=== PATIENT | female | born 1960 | race Caucasian/White ===

== ENCOUNTER 2019-08-24 20:31 | Observation (INO) | payer OTHER ==
[2019-08-24] MEDS ORDERED: Albuterol Sulfate 2.5 mg/3 ml Neb ONE ×2 (20:54→22:52)
--- NOTE | 2019-08-24 21:00 | RAD ---
EXAM: Portable chest PROVIDED CLINICAL HISTORY: Dyspnea COMPARISON: 01/20/2019 FINDINGS: Cardiac and mediastinal silhouette is within normal limits. No focal consolidation, pleural fluid or pneumothorax evident. IMPRESSION: No evidence for an acute cardiopulmonary process.
[2019-08-24 21:05] LABS: Analyzer IN Cardio ER; Base Excess (BEa) -0.4 mEq/L (-2.0 to +3.0); CO2 Tension 30.3 mmHg (35.0-45.0); Calcium, Ionized 1.12 mmol/L (1.12-1.30); Carboxyhemoglobin (COHb) 0.2 gm% (0.0-3.0); Hemoglobin (Hb) 14.6 g/dL (12.0-16.0); O2 Tension (PaO2) 67.3 mmHg (> 80.0); Potassium - ABG Lab 2.92 mmol/L (3.70-5.30); pH, Arterial 7.48 (7.35-7.45)
[2019-08-24] MEDS ORDERED: Magnesium 2 GM/50 ML BAG (IN WATER) ONE (21:05)
[2019-08-24] MEDS ORDERED: Dexamethasone 10 MG/ML VIAL ONE (21:05)
[2019-08-24 21:11] LABS: ALV-art Gradient 44.555 (0-20); Puncture Site RRA
[2019-08-24] MEDS ORDERED: Oseltamivir 75 MG CAP PO SCH (21:15)
[2019-08-24 21:44] LABS: #Lymphocytes 1.2 thou/uL (1.20-3.40); #Monocytes 0.4 thou/uL (0.11-0.59); #Neutrophils 2.8 thou/uL (1.40-6.50); %Basophils 0.1 % (0.0-1.0); %Eosinophils 0.6 % (0.0-10.0); %Lymphocytes 26.5 % (21.0-51.0); %Neutrophils 64.8 % (42.0-75.0); Mean Corpuscular HGB CONC 36.1 g/dL (32.0-36.0); Mean Corpuscular Hemoglobin 31.6 pg (27.0-31.0); Mean Corpuscular Volume 87.6 fL (78.0-98.0); Mean Platelet Volume 8.6 fL (7.4-10.4); Platelet Count 195 thou/uL (130-400); RBC Distribution Width 12.1 % (11.5-14.5); Red Blood Cell (RBC) Count 4.42 mill/uL (4.20-5.40); White Blood Cell (WBC) Count 4.4 thou/uL (4.8-10.8)
[2019-08-24 22:03] LABS: ALT (SGPT) 15 U/L (8-55); AST (SGOT) 27 U/L (5-34); Albumin 4.1 g/dL (3.4-4.8); Alkaline Phosphatase 74 U/L (40-110); Anion Gap 14 mmol/L (10-20); BUN (Urea Nitrogen) 13 mg/dL (9.8-20.1); Bilirubin, Total 0.5 mg/dL (0.2-1.2); CK (CPK) 320 U/L (29-168); Calc. Creatinine Clearance 0 mL/min (70-130); Calcium 8.9 mg/dL (7.8-10.44); Carbon Dioxide 23 mmol/L (23-31); Chloride 104 mmol/L (98-107); Estimated GFR-MDRD 70; Globulin 2.7 g/dL (2.4-3.5); Glucose 126 mg/dL (80-115); Lipase 54 U/L (8-78); Protein, Total 6.8 g/dL (6.0-8.3); Sodium 138 mmol/L (136-145)
[2019-08-24 22:23] LABS: Phosphorus 2.6 mg/dL (2.3-4.7)
[2019-08-24 22:25] LABS: CKMB 2.7 ng/mL (0-6.6)
[2019-08-24] MEDS ORDERED: Aspirin Chewable 81 MG TAB ONE ×2 (22:25→22:26)
[2019-08-25] MEDS ORDERED: Ondansetron PF 4 MG/2 ML Vial IVP PRN ×2 (01:03→02:42)
[2019-08-25] MEDS ORDERED: Ondansetron ODT 4 MG TAB SL PRN (01:03)
[2019-08-25] MEDS ORDERED: Sodium Chloride 0.9% 1,000 ML IV SCH (01:03)
[2019-08-25 02:32] VITALS: BMI 44.4
[2019-08-25] MEDS ORDERED: Ondansetron ODT 4 MG TAB PO PRN (02:42)
[2019-08-25] MEDS ORDERED: Senokot S 8.6-50 MG TAB PO PRN (02:42)
[2019-08-25] MEDS ORDERED: Acetaminophen 325 MG TAB PO PRN (02:42)
[2019-08-25] MEDS ORDERED: Calcium Carbonate 500 MG ChewTAB PO PRN (02:42)
[2019-08-25] MEDS ORDERED: cloNIDine 0.1 MG TAB PO PRN (02:44)
[2019-08-25] MEDS ORDERED: Potassium Chloride 20 MEQ TAB PO SCH ×2 (02:45→09:00)
[2019-08-25] MEDS ORDERED: Magnesium 2 GM/50 ML 2 GM in Premix Bag 1 BAG IVPB SCH (03:00)
--- NOTE | 2019-08-25 03:29 | HP ---
CHIEF COMPLAINT: Shortness of breath. HISTORY OF PRESENT ILLNESS: The patient is a 59-year-old white female with mild persistent asthma, presented to the emergency room with above complaints. Over the last 7 to 8 days, the patient developed gradual worsening shortness of breath along with chest tightness and wheezing. She also felt febrile, however, did not record her temperature. She was seen at [facility] and was diagnosed with flu on the 22 of August. She was discharged home after nebulizer treatment. Her symptoms progressively got worse, for which she presented to the emergency room. She has difficulty walking to the bathroom from her bedroom. She tried using nebulizer 4 to 5 times a day without much relief. She never takes the flu shot per patient report. In the emergency room, the patient was in significant distress with O2 saturation of 92% on room air. She received nebulizer treatment, aspirin, Levaquin, Tamiflu, Decadron, and DuoNebs in the emergency room. The patient was brought in by EMS. PAST MEDICAL HISTORY: 1. Mild persistent asthma. 2. History of herpes simplex infection in 2013. PAST SURGICAL HISTORY: 1. Hysterectomy in 1981. 2. Removal of skin tumor in the neck in 1994 to 1995. ALLERGIES: THE PATIENT DENIES ANY DRUG ALLERGIES. CURRENT HOME MEDICATIONS: The patient has albuterol nebulizer as needed. She uses ProAir inhaler as needed. She is on Advair Diskus 250/50 twice a day. SOCIAL HISTORY: She denies any history of smoking, alcohol, or drug use. She currently lives at home with her spouse. FAMILY HISTORY: Positive for father with hypertension. Mother with diabetes and stroke. REVIEW OF SYSTEMS: All other review of systems reviewed and were found negative. PHYSICAL EXAMINATION: VITAL SIGNS: Temperature 99, respirations of 24, pulse rate of 88, blood pressure of 122/58 with O2 saturation 95% on room air. GENERAL: A 59-year-old female in mild to moderate respiratory distress, currently receiving breathing treatment. HEENT: Head, atraumatic and normocephalic. Sclerae anicteric. Dry mucous membranes. No oral lesion. NECK: Supple. No JVD. No carotid bruit. LUNGS: Show diffuse expiratory wheezing with rhonchi. There were occasional rales at bases. Mild accessory muscle use. HEART: S1 and S2 present. Regular. No rubs or gallops. ABDOMEN: Soft, obese. Bowel sounds present. No rebound or guarding. EXTREMITIES: No edema or calf tenderness. NEUROLOGIC: Grossly nonfocal. Moves all 4 extremities. PSYCHIATRY: Alert, awake, and oriented x3. Normal affect. SKIN: Warm and dry. LYMPH NODES: No palpable lymph nodes in the neck. PERIPHERAL VASCULAR: Radial pulses palpable bilaterally. LABORATORY FINDINGS: WBC 4.4 with hemoglobin 14 and hematocrit 38.8. ABGs showed pH 7.48 with pCO2 of 30.3 and bicarbonate 22. Chemistry showed sodium 138, potassium 3, chloride 104, bicarb 23, BUN of 13, and creatinine 0.83. CK was 320, troponin of 0.047 with normal CK-MB. BNP was less than 10. CARDIOVASCULAR STUDIES: EKG by my review showed sinus rhythm without significant ST-T wave changes. IMAGING DATA: Chest x-ray by my review showed increased bronchopulmonary markings. IMPRESSION: 1. Acute hypoxic respiratory failure. 2. Acute asthma exacerbation. 3. Acute bronchitis, suspected due to influenza. 4. Hypokalemia. 5. Chronic kidney disease, stage 2. 6. Type 2 myocardial infarction. 7. Morbid obesity with a BMI of 44.4. 8. History of mild persistent asthma. 9. Generalized weakness, multifactorial. 10. Leukopenia secondary to #1 and 2. 11. Hypomagnesemia. PLAN: The patient will be monitored on the medical floor. We will start her on Solu-Medrol 20 mg every 6 hours along with nebulizer treatment every 4 hours. Continue Tamiflu, which was started in the ER. We will also continue empiric antibiotics for possible bacterial component. Replace electrolytes. We will give her 2 g IV magnesium. Plan of care was discussed with the patient in detail. She stated understanding. Job ID: [id number]
[2019-08-25] MEDS: Mometasone/Formoterol 120 PUFF INHALER INH SCH ×2 (07:00→19:19)
[2019-08-25] MEDS: methylPREDNISolone Sod Succ 40 MG VIAL IVP SCH ×3 (07:27→17:30)
[2019-08-25 07:36] LABS: Anion Gap 17 mmol/L (10-20); BUN (Urea Nitrogen) 11 mg/dL (9.8-20.1); Calc. Creatinine Clearance 151 mL/min (70-130); Carbon Dioxide 21 mmol/L (23-31); Chloride 106 mmol/L (98-107); Estimated GFR-MDRD 76; Glucose 158 mg/dL (80-115); Potassium 3.7 mmol/L (3.5-5.1); Sodium 140 mmol/L (136-145)
[2019-08-25 07:43] LABS: Troponin I 0.025 ng/mL (< 0.028)
[2019-08-25 08:01] LABS: #Lymphocytes 0.7 thou/uL (1.20-3.40); #Monocytes 0.1 thou/uL (0.11-0.59); #Neutrophils 1.8 thou/uL (1.40-6.50); %Basophils 0.6 % (0.0-1.0); %Eosinophils 0.7 % (0.0-10.0); %Lymphocytes 26.1 % (21.0-51.0); %Monocytes 3.9 % (0.0-10.0); %Neutrophils 68.6 % (42.0-75.0); Hemoglobin 13.9 g/dL (12.0-16.0); Mean Corpuscular HGB CONC 33.3 g/dL (32.0-36.0); Mean Corpuscular Hemoglobin 30.7 pg (27.0-31.0); Mean Corpuscular Volume 92.1 fL (78.0-98.0); Mean Platelet Volume 8.6 fL (7.4-10.4); Platelet Count 207 thou/uL (130-400); RBC Distribution Width 12.3 % (11.5-14.5); Red Blood Cell (RBC) Count 4.54 mill/uL (4.20-5.40); White Blood Cell (WBC) Count 2.6 thou/uL (4.8-10.8)
[2019-08-25] MEDS: Famotidine 20 MG TAB PO SCH ×2 (08:19→20:14)
[2019-08-25] MEDS: guaiFENesin ER 600 MG TAB PO SCH ×2 (08:20→20:14)
[2019-08-25] MEDS: Potassium Chloride 20 MEQ TAB PO SCH ×3 (08:20→17:30)
[2019-08-25] MEDS: Saccharomyces boulardii 250 MG CAP PO SCH (08:20)
[2019-08-25] MEDS: Cefdinir 300 MG CAP PO SCH ×2 (08:20→20:14)
[2019-08-25] MEDS ORDERED: Oseltamivir 75 MG CAP PO SCH (09:00)
[2019-08-25] MEDS ORDERED: Dexamethasone 4 mg/ml Vial SLOW IVP SCH (09:00)
--- NOTE | 2019-08-25 12:06 | PDOC.HOSPP ---
- Subjective Encounter Date: 08/25/19 Encounter Time: 09:45 Subjective: Patient seen and examined. No new complaints. No overnight events - Objective Vital Signs & Weight: Vital Signs (12 hours) Temp Pulse Resp BP Pulse Ox 08/25/19 12:01 70 16 08/25/19 11:46 98.4 F 70 20 153/87 H 94 L 08/25/19 08:00 99 08/25/19 07:59 98.4 F 71 20 130/77 99 08/25/19 07:00 71 16 08/25/19 06:52 71 16 08/25/19 04:10 98.6 F 73 20 112/69 100 08/25/19 03:00 100 08/25/19 02:46 98.3 F 76 137/81 100 08/25/19 02:08 83 18 100 Weight Weight 275 lb 6 oz Result Diagrams: 08/25/19 07:05 08/25/19 07:05 Radiology Reviewed by me: Yes Hospitalist ROS - Review of Systems Constitutional: denies: fever, chills, sweats, weakness, malaise, other ENT: denies: ear pain, ear discharge, nose pain, nose discharge, nose congestion , mouth pain, mouth swelling, throat pain, throat swelling, other Respiratory: reports: cough, shortness of breath. denies: dry, hemoptysis, SOB with excertion, pleuritic pain, sputum, wheezing, other Cardiovascular: denies: chest pain, palpitations, orthopnea, paroxysmal noc. dyspnea, edema, light headedness, other Gastrointestinal: denies: nausea, vomiting, abdominal pain, diarrhea, constipation, melena, hematochezia, other Genitourinary: denies: dysuria, frequency, incontinence, hematuria, retention, other Musculoskeletal: denies: neck pain, shoulder pain, arm pain, back pain, hand pain, leg pain, foot pain, other Skin: denies: rash, lesions, cheryl, bruising, other - Medication Medications: Active Medications Generic Name Dose Route Start Last Admin Trade Name Freq PRN Reason Stop Dose Admin Albuterol/Ipratropium 3 ml 08/25/19 07:00 08/25/19 12:01 Duoneb NEB 3 ml [id number] JOHNSON Administration Cefdinir 300 mg 08/25/19 09:00 08/25/19 08:20 Omnicef PO 300 mg BID JOHNSON Administration Famotidine 20 mg 08/25/19 09:00 08/25/19 08:19 Pepcid PO 20 mg BID JOHNSON Administration Guaifenesin 600 mg 08/25/19 09:00 08/25/19 08:20 Mucinex PO 600 mg Q12HR JOHNSON Administration Methylprednisolone Sodium Succinate 20 mg 08/25/19 06:00 08/25/19 11:29 Solu-Medrol IVP 20 mg Q6HR JOHNSON Administration Mometasone Furoate/Formoterol Fumar 2 puff 08/25/19 06:30 08/25/19 07:00 Dulera 200 Mcg/5 Mcg Inhaler INH 2 puff BID-RT JOHNSON Administration Oseltamivir Phosphate 75 mg 08/25/19 09:00 08/25/19 08:20 Tamiflu PO 08/29/19 09:01 75 mg BID JOHNSON Administration Potassium Chloride 20 meq 08/25/19 08:00 08/25/19 11:29 K-Dur PO 08/25/19 17:01 20 meq TID-WM JOHNSON Administration Saccharomyces Boulardii 250 mg 08/25/19 09:00 08/25/19 08:20 Florastor PO 250 mg DAILY JOHNSON Administration - Exam General Appearance: NAD, awake alert Eye: PERRL, anicteric sclera ENT: normocephalic atraumatic, no oropharyngeal lesions Neck: supple, symmetric, no JVD Heart: RRR, no murmur, no gallops, no rubs Respiratory: CTAB, no wheezes, no rales, no ronchi Gastrointestinal: soft, non-tender, non-distended, normal bowel sounds Extremities: no cyanosis, no clubbing, no edema Skin: normal turgor, no lesions Neurological: no focal deficits Musculoskeletal: normal tone, normal strength Psychiatric: normal affect, normal behavior Hosp A/P (1) Acute bronchitis Code(s): J20.9 - ACUTE BRONCHITIS, UNSPECIFIED Status: Acute Qualifiers: Bronchitis organism: unspecified organism Qualified Code(s): J20.9 - Acute bronchitis, unspecified (2) Acute respiratory failure with hypoxia Code(s): J96.01 - ACUTE RESPIRATORY FAILURE WITH HYPOXIA Status: Resolved (3) Influenza due to unidentified influenza virus with other respiratory manifestations Code(s): J11.1 - FLU DUE TO UNIDENTIFIED INFLUENZA VIRUS W OTH RESP MANIFEST Status: Resolved (4) Morbid obesity with BMI of 40.0-44.9, adult Code(s): E66.01 - MORBID (SEVERE) OBESITY DUE TO EXCESS CALORIES; Z68.41 - BODY MASS INDEX (BMI) 40.0-44.9, ADULT Status: Chronic (5) Hypomagnesemia Code(s): E83.42 - HYPOMAGNESEMIA Status: Acute - Plan old records reviewed/req, plan discussed w/ family, continue antibiotics, respiratory therapy 08/25/19 continue solumedrol continue omnicef doubt tamiflu will help now as duration is more than 1 week, will dc and screen 08/20 was negative medication reviewed and continue to provide symptomatic treatment
[2019-08-25] MEDS ORDERED: Enoxaparin Sodium 40 MG/0.4 ML SYRINGE SC SCH (21:00)
[2019-08-26] MEDS: methylPREDNISolone Sod Succ 40 MG VIAL IVP SCH ×2 (00:38→05:42)
[2019-08-26 06:40] LABS: #Lymphocytes 1.3 thou/uL (1.20-3.40); #Monocytes 0.6 thou/uL (0.11-0.59); #Neutrophils 4.7 thou/uL (1.40-6.50); %Eosinophils 0.2 % (0.0-10.0); %Lymphocytes 19.5 % (21.0-51.0); %Monocytes 8.6 % (0.0-10.0); %Neutrophils 71.7 % (42.0-75.0); Hemoglobin 13.6 g/dL (12.0-16.0); Mean Corpuscular HGB CONC 34.2 g/dL (32.0-36.0); Mean Corpuscular Hemoglobin 30.5 pg (27.0-31.0); Mean Corpuscular Volume 89.4 fL (78.0-98.0); Mean Platelet Volume 8.8 fL (7.4-10.4); Platelet Count 197 thou/uL (130-400); Red Blood Cell (RBC) Count 4.46 mill/uL (4.20-5.40); White Blood Cell (WBC) Count 6.6 thou/uL (4.8-10.8)
[2019-08-26] MEDS: Mometasone/Formoterol 120 PUFF INHALER INH SCH (06:41)
[2019-08-26 08:09] VITALS: BP 125/82; TEMP 97.9
[2019-08-26] MEDS: guaiFENesin ER 600 MG TAB PO SCH (08:50)
[2019-08-26] MEDS: Cefdinir 300 MG CAP PO SCH (08:50)
[2019-08-26] MEDS: Saccharomyces boulardii 250 MG CAP PO SCH (08:50)
[2019-08-26] MEDS: Famotidine 20 MG TAB PO SCH (08:52)
[2019-08-26 10:45] LABS: Calcium 9.1 mg/dL (7.8-10.44); Chloride 107 mmol/L (98-107); Potassium 4.2 mmol/L (3.5-5.1); Sodium 140 mmol/L (136-145)
[2019-08-26 10:46] LABS: Glucose 145 mg/dL (80-115)
[2019-08-26 10:47] LABS: Anion Gap 14 mmol/L (10-20); Carbon Dioxide 23 mmol/L (23-31)
[2019-08-26 10:49] LABS: Calc. Creatinine Clearance 131 mL/min (70-130); Estimated GFR-MDRD 64
[2019-08-26 10:50] LABS: BUN (Urea Nitrogen) 13 mg/dL (9.8-20.1)
--- NOTE | 2019-08-26 11:24 | DIS ---
DATE OF ADMISSION: 08/25/2019 DATE OF DISCHARGE: 08/26/2019 PRIMARY CARE PHYSICIAN: Orlando Ibarra MD. DISCHARGE DISPOSITION: Home. PRIMARY DISCHARGE DIAGNOSES: Acute bronchitis, hypomagnesemia, and acute respiratory failure with hypoxia on admission, resolved. SECONDARY DISCHARGE DIAGNOSIS: Morbid obesity with BMI 44. PRIMARY PROCEDURE/OPERATION: None. RADIOLOGICAL INVESTIGATION: Chest x-ray was unremarkable. SIGNIFICANT LABORATORY DATA: WBC 6.6, hemoglobin 13.6, and platelets 197. Sodium 140, creatinine 0.89. Troponin 0.025. Magnesium replaced and corrected. Potassium 2.6. Lactic acid 1.2. DISCHARGE MEDICATIONS: 1. ProAir HFA 2 puffs q.6 hourly p.r.n. 2. Mucinex 600 mg twice daily for 7 days. 3. Omnicef 300 mg twice daily for 7 days. 4. Prednisone 40 mg p.o. daily for 7 days. CONTRAINDICATION: None. CODE STATUS: Full code. INPATIENT LABOR [employer]ION BUSINESS REPRESENTATIVE: None. ALLERGIES: NO KNOWN DRUG ALLERGIES. DISCHARGE PLAN: Posthospital, the patient was instructed to make appointment with primary care physician in 1 week. HOSPITAL COURSE: A 59-year-old female who has flu-like illness back in [facility]. The patient was recently evaluated at [facility] where the patient had positive for influenza A, but she was not treated with Tamiflu because of late presentation. The patient was having increasing shortness of breath and cough subsequently and that is why she came to emergency room for evaluation. In the emergency room, chest x-ray was normal, but she was slightly hypoxic. The patient was suffering from bronchitis. The patient was admitted to medical floor, and she was treated with Solu-Medrol, empiric antibiotic therapy with Omnicef and respiratory therapy. The patient was no longer requiring oxygen, and her condition significantly improved. Her recent influenza screen was also negative. We discontinued Tamiflu and was only treated with antibiotic therapy. At this point, diagnosis is post influenza A acute bronchitis with superinfection with possible bacterial infection and that is why we are treating with Omnicef and prednisone, Mucinex, and albuterol inhaler. The patient is doing very well. She is afebrile on room air, tolerating p.o. well and ambulatory. The patient was seen and examined at bedside today. PHYSICAL EXAMINATION: VITAL SIGNS: Currently, temperature 97.9, pulse 57, respiratory rate 18, saturation is 96%, blood pressure 125/82, weight 275 pounds. GENERAL: The patient is alert, oriented, no acute distress. HEENT: Head; normocephalic, atraumatic. Eyes; pupils round, reactive to light. Extraocular muscle intact. ENT, oropharynx within normal limits. Moist mucous membranes. NECK: Supple. No JVD. No meningeal signs of irritation. LUNGS: Clear to auscultation without any rhonchi or rales. CARDIAC: S1 and S2. Regular without any murmur. ABDOMEN: Soft and benign without any tenderness. EXTREMITIES: No edema. NEUROLOGIC: Nonfocal examination. Job ID: [id number]
== END 2019-08-26 11:24 | disposition home or self-care (01) ==
LOC: ERS 20:31 → T4-B 08-25 00:54 → INTOOBSV 08-25 00:54
PROVIDERS: ADMIT Internal Medicine; ATTEND Internal Medicine
DX: J10.1 Influenza due to other identified influenza virus with other respiratory manifestations (principal); J96.01 Acute respiratory failure with hypoxia; J45.31 Mild persistent asthma with (acute) exacerbation; N18.2 Chronic kidney disease, stage 2 (mild); E87.6 Hypokalemia; I25.2 Old myocardial infarction; E83.42 Hypomagnesemia; R53.1 Weakness; D72.819 Decreased white blood cell count, unspecified; E66.01 Morbid (severe) obesity due to excess calories; Z68.41 Body mass index [BMI] 40.0-44.9, adult; Z91.048 Other nonmedicinal substance allergy status
CPT/HCPCS: 36415; 71045; 80048; 80053; 82550; 82553; 82805; 83605; 83690; 83735; 83880; 84100; 84484; 85025; 87040; 93005; 94640; 94664; 96361; 96365; 96367; 96375; G0378; J1100; J1650; J1956; J2920; J3475; J7611; J7620

== ENCOUNTER 2020-05-28 20:24 | Emergency (ER) | payer OTHER ==
[2020-05-28] MEDS ORDERED: methylPREDNISolone Sod Succ/PF 125 MG/2 ML VIAL ONE (21:08)
[2020-05-28 21:20] LABS: #Eosinphils 0.2 thou/uL (0.0-0.7); #Lymphocytes 1.8 thou/uL (1.20-3.40); #Monocytes 0.4 thou/uL (0.11-0.59); #Neutrophils 6.1 thou/uL (1.40-6.50); %Basophils 0.6 % (0.0-1.0); %Eosinophils 1.9 % (0.0-10.0); %Lymphocytes 20.5 % (21.0-51.0); %Monocytes 5.1 % (0.0-10.0); Hemoglobin 13.3 g/dL (12.0-16.0); Mean Corpuscular HGB CONC 34.9 g/dL (32.0-36.0); Mean Corpuscular Hemoglobin 31.2 pg (27.0-31.0); Mean Corpuscular Volume 89.3 fL (78.0-98.0); Mean Platelet Volume 8.6 fL (7.4-10.4); Platelet Count 200 thou/uL (130-400); RBC Distribution Width 12.2 % (11.5-14.5); Red Blood Cell (RBC) Count 4.25 mill/uL (4.20-5.40); White Blood Cell (WBC) Count 8.5 thou/uL (4.8-10.8)
--- NOTE | 2020-05-28 21:22 | RAD ---
PORTABLE CHEST: History: Dyspnea Comparison: 08-24-19 FINDINGS: Lungs appear clear. No infiltrate identified. Heart and mediastinum unremarkable and stable. IMPRESSION: No acute process identified. POS: AGW
[2020-05-28 21:55] LABS: ALT (SGPT) 11 U/L (8-55); AST (SGOT) 18 U/L (5-34); Albumin 3.8 g/dL (3.4-4.8); Alkaline Phosphatase 98 U/L (40-110); Anion Gap 16 mmol/L (10-20); BUN (Urea Nitrogen) 15 mg/dL (9.8-20.1); Bilirubin, Total 0.5 mg/dL (0.2-1.2); Calc. Creatinine Clearance 0 mL/min (70-130); Calcium 8.3 mg/dL (7.8-10.44); Carbon Dioxide 21 mmol/L (23-31); Chloride 107 mmol/L (98-107); Estimated GFR-MDRD 63; Globulin 2.9 g/dL (2.4-3.5); Glucose 130 mg/dL (80-115); Protein, Total 6.7 g/dL (6.0-8.3); Sodium 140 mmol/L (136-145)
[2020-05-29 14:02] LABS: SARS-CoV-2 MS2 Positive; SARS-CoV-2 N Gene Negative; SARS-CoV-2 S Gene Negative; SARS-CoV-2 by NAA Not Detected (NotDetected); SARS-CoV-2 orf1ab Negative
== END 2020-05-28 22:49 | disposition home or self-care (01) ==
LOC: ERS 20:24
DX: J45.901 Unspecified asthma with (acute) exacerbation (principal); J06.9 Acute upper respiratory infection, unspecified; Z20.828 Contact with and (suspected) exposure to other viral communicable diseases; E66.9 Obesity, unspecified
CPT/HCPCS: 36415; 71045; 80053; 85025; 87635; 96374; J2930; U0003